=== PATIENT | female | born 2000 | race Caucasian/White ===

== ENCOUNTER 2023-07-04 23:19 | Emergency (ER) | payer MEDICAID ==
[~2023-07-04] VITALS: Ht 160 cm; Wt 63.0 kg
[2023-07-04 23:34] VITALS: BP 128/80; PULSE 110; RESP 18; TEMP 98.9; O2SAT 100
[2023-07-05] MEDS ORDERED: KETOROLAC 15MG/ML VIAL IM ONE (01:15)
[2023-07-05] MEDS: ONDANSETRON 4MG ODT PO ONE (03:05)
== END 2023-07-05 03:10 | disposition home or self-care (01) ==
LOC: ER 23:19
DX: B34.9 Viral infection, unspecified (principal); R56.9 Unspecified convulsions; M79.10 Myalgia, unspecified site; Z20.822 Contact with and (suspected) exposure to COVID-19
CPT/HCPCS: 99283; 81025; 87426; 87804 ×2; Q0162